=== PATIENT | male | born 1975 | race Caucasian/White ===

== ENCOUNTER 2024-07-23 11:11 | Emergency (ER) | payer BC, SELFPAY ==
[2024-07-23] VITALS (10 sets, daily range): BP systolic 141–211; BP diastolic 88–122; PULSE 75–116; RESP 12–18; TEMP 36.6–36.7; O2SAT 96–99; BMI 25.5
--- NOTE | 2024-07-23 11:13 | ECG_ITS ---
APPROVED REPORT Exam: Resting ECG HR:114 bpm ECG Measurements Heart Rate 114 AXES NC 198 P 53 QRSd 98 QRS 40 QT 328 T 61 QTc 396 Conclusion Sinus tachycardia Electronically signed by : SUPA PAN, 07/23/2024 15:04:06
--- NOTE | 2024-07-23 11:28 | XR_ITS ---
FINAL REPORT CLINICAL HISTORY: CHEST PAIN SINCE YESTERDAY COMPARISON: None FINDINGS: No acute pulmonary opacity is present. There is no evidence of effusion or pneumothorax. Mediastinum is unremarkable. Heart size is normal. IMPRESSION: No acute abnormality. Reviewed, Interpreted and Dictated by Larissa Tobar MD Transcribed by Sherine Juares Authenticated and . [facility]
--- NOTE | 2024-07-23 11:31 | [facility].EDCP ---
Discharge Plan Disposition Patient Disposition: Home, Self-Care Chief Complaint: Chest Pain Prescriptions Prescriptions: No Action atorvastatin 40 mg tablet 40 mg PO DAILY trazodone 100 mg tablet 100 mg PO DAILY Rx Instructions: at night hydrochlorothiazide 12.5 mg capsule 12.5 mg PO DAILY sertraline 25 mg tablet 25 mg PO DAILY metoprolol succinate 25 mg tablet extended release 24 hr 25 mg PO DAILY fenofibrate nanocrystallized 145 mg tablet 145 mg PO DAILY Referrals Follow up/Referrals: Provider,MD Yolanda [Referring] - See instructions Constantin Savage MD [Staff Physician] - See instructions Activity Restrictions/Add. Instructions Additional Instructions/Restrictions: Continue following with your family doctor regarding this visit to the emergency department. Increase metoprolol to 50 mg daily and also call cardiology to have scheduled follow-up as they will be able to better manage medications long-term. Call your family doctor to establish care for this visit to the emergency department and schedule follow-up within 48 hours to ensure improvement. If you have any worsening of your condition or any other concerning signs or symptoms, return to the emergency department or your primary care doctor for further evaluation. Clinical Impressions Clinical Impression: Atypical chest pain Print Language Print Language: Divehi Discharge ED Provider: Dao Cassidy [facility] General Chief Complaint: Chest Pain Stated Complaint: Chest Pain Time Seen by Provider: 07/23/24 11:31 Mode of Arrival: Ambulatory Source of Information: Patient Limitations: No Limitations Description of Symptoms (Recalled from ER Triage Doc. by RN): Sent from PCP office for chest pain with inspiration since yesterday. Denies any other symptoms at this time. History of Present Illness HPI narrative: Please note that above description of symptoms, in this electronic medical record under categorization of recalled from ER triage doctor by RN are reflective of an initial nursing assessment, however, is not reflective of my full history and physical exam that was personally taken and clarified. Consequentially, this preceding description of symptoms, which may include the patient's categorized chief complaint in the EMR, do not reflect my personal clinical impression, and the ultimate description of history of present illness and patient stated complaints should be deferred to this section of the note. Unless stated otherwise or congruent with this section of the note, additional signs, symptoms, or incongruence should be interpreted as inaccurate with my clinical impression. Related Data Home Medications ?Medication ?Instructions ?Recorded ?Confirmed atorvastatin 40 mg tablet 40 mg PO DAILY 07/23/24 07/23/24 fenofibrate nanocrystallized 145 145 mg PO DAILY 07/23/24 07/23/24 mg tablet hydrochlorothiazide 12.5 mg capsule 12.5 mg PO DAILY 07/23/24 07/23/24 metoprolol succinate 25 mg 25 mg PO DAILY 07/23/24 07/23/24 tablet,extended release 24 hr sertraline 25 mg tablet 25 mg PO DAILY 07/23/24 07/23/24 trazodone 100 mg tablet 100 mg PO DAILY 07/23/24 07/23/24 Allergies Allergy/AdvReac Type Severity Reaction Status Date / Time No Known Allergies Allergy Verified 07/23/24 11:19 [facility] Disclaimer: The information contained in this section may have been updated after the patient was seen, as this information can be updated by other users. Social History Smoking Status: Never smoker alcohol intake: never current occupational status: employed Travel in the last 8 weeks: None ROS Obtained: Yes All systems reviewed & no additional complaints except as documented Physical Exam General General appearance: alert and anxious Neck Neck exam: Present trachea midline Chest Chest inspection: Present normal inspection and symmetric chest wall rise Respiratory Respiratory exam: Present normal lung sounds bilaterally; Absent respiratory distress, wheezes, stridor, accessory muscle use or prolonged expiratory phase Cardiovascular Cardiovascular exam: Present normal rhythm, tachycardia and other (Pulses equal and symmetric in upper and lower extremities) Extremities Exam Extremities exam: Absent edema Neurological Exam Neurological exam: Present alert, oriented X3 and CN II-XII intact Skin Skin exam: Present warm and dry; Absent cyanosis, diaphoresis or pallor HEART Score HEART Score HEART Score assessment performed?: Yes HEART Score: 4 Critical Care Critical Care Time Critical Care Time: No Medical Decision Making Medical Records Medical records reviewed: Yes I reviewed the patient's medical records. Johnny Inquiry Pt receiving controlled substance: No Johnny was queried for this patient: No Vital Signs Vital Signs: 07/23/24 11:11 07/23/24 11:20 07/23/24 11:30 Temperature 97.9 F Temperature Source Oral Pulse Rate [Radial] 116 H Respiratory Rate 18 Blood Pressure 199/122 H 192/110 H Blood Pressure [Left Arm] 211/116 H Blood Pressure Mean 147 153 Blood Pressure Mean [Left Arm] 147 Blood Pressure Source [Left Arm] Automatic Cuff Blood Pressure Position [Left Arm] Sitting 02 Sat by Pulse Oximetry 98 Oxygen Delivery Method Room Air 07/23/24 12:00 07/23/24 12:08 Temperature Temperature Source Pulse Rate [Radial] Respiratory Rate Blood Pressure 174/107 H 157/106 H Blood Pressure [Left Arm] Blood Pressure Mean 139 123 Blood Pressure Mean [Left Arm] Blood Pressure Source [Left Arm] Blood Pressure Position [Left Arm] 02 Sat by Pulse Oximetry Oxygen Delivery Method Lab Data Labs: Lab Results 07/23/24 11:18: WBC 9.0, RBC 4.98, Hgb 14.9, Hct 44.5, MCV 89.4, MCH 29.9, MCHC 33.5, RDW 12.5, Plt Count 449 H, MPV 10.4, Neut % (Auto) 69.6, Lymph % (Auto) 24.5, Dunn % (Auto) 4.9, Eos % (Auto) 0.6, Baso % (Auto) 0.3, Neut # (Auto) 6.2, Lymph # (Auto) 2.2, Dunn # (Auto) 0.4, Eos # (Auto) 0.1, Baso # (Auto) 0.0, D-Dimer < 0.25, Sodium 140, Potassium 3.4 L, Chloride 104, Carbon Dioxide 24, Anion Gap 15.4 H, BUN 24 H, Creatinine 1.10, Estimated Creat Clear 93, Estimated GFR 71, Est GFR ( Amer) 86, Glucose 127 H, Calcium 9.5, Total Bilirubin 0.9, AST 44, ALT 36, Alkaline Phosphatase 49, Troponin I < 0.01, NT-Pro-B Natriuret Pep 21.3, Total Protein 8.7 H, Albumin 5.4 H, Globulin 3.3 H, Albumin/Globulin Ratio 1.6, Lipase 74 07/23/24 11:18 07/23/24 11:18 Response Orders (Tests/Meds): ED MEDICATIONS Discontinued Medications Generic Name Dose Route Start Last Admin Trade Name Freq PRN Reason Stop Dose Admin Metoprolol Tartrate 5 mg 07/23/24 12:01 07/23/24 12:12 Metoprolol Tartrate 5mg/5ml Vial IV 07/23/24 12:02 5 mg ONCE ONE Administration ORDERS Category Date Time Status XR chest portable Stat Exams 07/23/24 11:28 Completed Complete Blood Count Auto Diff Stat Lab 07/23/24 11:18 Completed Comprehensive Metabolic Panel Stat Lab 07/23/24 11:18 Completed D-Dimer Stat Lab 07/23/24 11:18 Completed Lipase Stat Lab 07/23/24 11:18 Completed NT Pro Brain Natriuretic Pep. Stat Lab 07/23/24 11:18 Completed Troponin I Q3H Lab 07/23/24 14:30 Ordered Troponin I Q3H Lab 07/23/24 17:30 Ordered Troponin I Stat Lab 07/23/24 11:18 Completed MDM Narrative Medical Decision Narrative: 49-year-old male history of hypertension, hyperlipidemia, anxiety presenting with palpitations, high blood pressure, anxiety. Patient states has been following with his family doctor regarding these problems. Was recently started on sertraline. Unknown if this has any bearing on was going on. States that for the past few days, on and off, he has felt palpitations, lightheaded, chest pressure/burning that substernal and does not radiate. Yesterday, 07/22, states that he had epigastric/substernal chest pain, burning associated with nausea. No diarrhea, fevers, chills, syncopal episodes, shortness of breath, or any other concerns. Patient does state that he has whitecoat hypertension and thinks this may be related, blood pressure runs 1 10-1 30 systolic at home. History was obtained via conversation with patient. On arrival, patient hemodynamically stable, alert, oriented x4, appropriate, GCS 15, moving all extremities spontaneously, pupils equal and reactive to light. Full physical exam performed and significant for well-appearing male no acute distress. He is mildly anxious. Tachycardic and hypertensive. Heart is clear, no murmurs gallops or rubs. No lower extremity edema. Pulses equal and symmetric in upper and lower extremities, no evidence of lower extremity edema. Abdomen soft. Patient neurologically intact. Differential includes symptomatic hypertension, anxiety, PE, bronchitis, pneumonia, pneumothorax, among others Patient was given 5 mg metoprolol for symptomatic management and correction of underlying abnormalities. Patient placed on continuous cardiac monitoring and continuous pulse ox with initial blood pressure 211/116, heart rate 116, saturation 98% on room air. Independent interpretation of EKG shows sinus tachycardia 114 bpm with AL 198, QRS 98, QTc 396. Normal axis. No acute ischemic change.. Workup independently interpreted and significant for nonactionable CBC or chemistry. Patient's troponin negative, BNP also normal. Chest x-ray on independent interpretation totally normal without acute cardiopulmonary airspace disease. On reevaluation, patient resting comfortably. Heart rate in the 70s, blood pressure 150/90. Reevaluation, patient feeling about the same, but a little better after metoprolol. Given patient presentation, workup, history, this most likely represents uncontrolled anxiety versus symptomatic hypertension. Because patient labs negative, workup negative, symptomatically better with metoprolol. Recommend following up with family physician. Because patient at baseline without signs or symptoms of clinical decompensation, deemed appropriate for discharge. Results were relayed to patient who voiced understanding and were agreeable to outpatient management and follow up. I discussed my clinical impression with patient and answered all questions. At this time, the evidence for any other entities in the differential is insufficient to warrant any further testing or ED observation. This was explained as well. Advisory was given that persistent or worsening symptoms require further evaluation. I confirmed the understanding of this discussion. Chief Accounting Officer disclaimer Much of this encounter note is an electronic zigzag topstitcher spoken language to printed text. Electronic zigzag topstitcher of the spoken language may permit errors. Although I have reviewed the note, some errors may still exist.
[2024-07-23 11:35] LABS: Basophils % 0.3 % (0.1-2.0); Eosinophils # 0.1 K/mm3 (0.0-0.4); Eosinophils % 0.6 % (0.1-12.0); Hematocrit 44.5 % (42.0-52.0); Hemoglobin 14.9 g/dL (14.1-18.0); Lymphocytes # 2.2 K/mm3 (0.7-4.5); Lymphocytes % 24.5 % (10-50); Mean Corpuscular HGB Conc 33.5 g/dL (31.8-35.4); Mean Corpuscular Hemoglobin 29.9 pg (27.0-31.2); Mean Corpuscular Volume 89.4 fl (80-94); Mean Platelet Volume 10.4 fl (7.4-10.4); Monocytes # 0.4 K/mm3 (0.1-1.0); Monocytes % 4.9 % (1.7-9.3); Neutrophils # 6.2 K/mm3 (1.8-7.8); Neutrophils % 69.6 % (37.0-80.0); Platelet Count 449 K/mm3 (142-424); Red Blood Count 4.98 M/mm3 (4.60-6.20); Red Cell Distribution Width 12.5 % (11.5-17.5)
--- NOTE | 2024-07-23 11:59 | PC.NURSE ---
1125- Patient on cardiac, BP, and SpO2 monitoring. Patient in gown, bed in low position, side rails raised, call lópez in reach. Patient expresses no needs at this time. A & O x 4. No distress noted. Awaiting provider evaluation.
[2024-07-23] MEDS: METOPROLOL TARTRATE 5MG/5ML VIAL 5 MG IV (12:12)
[2024-07-23 12:14] LABS: Lipase 74 U/L (23-300)
[2024-07-23 12:20] LABS: D-Dimer < 0.25 ug/mL (0.0-0.5)
[2024-07-23 12:23] LABS: NT Pro Brain Natriuretic Pep. 21.3 pg/mL (0-125)
[2024-07-23 12:50] LABS: Alanine Aminotransferase 36 U/L (12-78); Albumin Level 5.4 g/dl (3.5-5.0); Albumin/Globulin Ratio 1.6 (1.1-1.8); Alkaline Phosphatase 49 U/L (38-126); Aspartate Amino Transferase 44 U/L (17-59); Bilirubin,Total 0.9 mg/dl (0.2-1.3); Blood Urea Nitrogen 24 mg/dl (9-20); Calcium 9.5 mg/dl (8.4-10.2); Carbon Dioxide 24 mmol/L (22.0-30.0); Chloride 104 mmol/L (98-107); Creatinine Clearance Estimated 93 mL/min (50-200); Estimated Glomerular Filt Rate 71 ml/min (>60); GFR (African American) 86 ML/MIN (>60); Globulin 3.3 g/dL (1.3-3.2); Glucose 127 mg/dl (74-100); Sodium 140 mmol/L (136-145); Total Protein,Serum 8.7 g/dl (6.3-8.2)
[2024-07-23 12:57] LABS: Anion Gap 15.4 mEq/L (5-15); Potassium 3.4 mmoL/L (3.5-5.1); Troponin I < 0.01 ng/ml (0.00-0.034)
[2024-07-23 14:00] LABS: Thyroid Stimulating Hormone 2.55 uIU/mL (0.465-4.68)
== END 2024-07-23 13:46 | disposition home or self-care (01) ==
PROVIDERS: Emergency Provider Emergency Medicine; PCP Family Medicine
DX: R07.9 Chest pain, unspecified (principal)
CPT/HCPCS: 71045; 80053; 83690; 83880; 84436; 84443; 84484; 85025; 85378; 93005; 96374; 99285